=== PATIENT | male | born 1985 | race African-American/Black ===

== ENCOUNTER 2025-05-08 07:12 | Emergency (ER) | payer SELFPAY ==
[~2025-05-08] VITALS: Ht 180.3 cm; Wt 99.8 kg
[2025-05-08] MEDS: BACITRACIN ZINC 0.9GM TP ONE (08:34)
[2025-05-08] MEDS: SODIUM CHLORIDE 0.9% 1000ML 1,000 ML IV SCH (08:34)
[2025-05-08] MEDS: ACETAMINOPHEN 325 MG TAB PO ONE (09:21)
[2025-05-08 10:03] VITALS: PULSE 96; RESP 15; TEMP 98.5; O2SAT 98
== END 2025-05-08 10:03 | disposition home or self-care (01) ==
LOC: FSED 07:20
DX: R41.82 Altered mental status, unspecified (principal); S06.0X0A Concussion without loss of consciousness, initial encounter; S00.01XA Abrasion of scalp, initial encounter; R51.9 Headache, unspecified; R10.30 Lower abdominal pain, unspecified; W22.8XXA Striking against or struck by other objects, initial encounter; Y92.89 Other specified places as the place of occurrence of the external cause
CPT/HCPCS: 36415; 70450; 71045; 72125; 74176; 80053; 80307; 81003; 82948; 84484; 85025; 99284; J7030